=== PATIENT | female | born 1985 | race African-American/Black ===

== ENCOUNTER 2017-02-04 22:58 | Observation (INO) | payer BC ==
[~2017-02-04] VITALS: Ht 162.6 cm; Wt 97.5 kg
[2017-02-05] MEDS ORDERED: NALOXONE HCL 0.4 MG/ML 1ML VIAL IM PRN (00:15)
[2017-02-05] MEDS ORDERED: METHYLERGONOVINE MALEATE 0.2 MG/ML IM PRN (00:15)
[2017-02-05] MEDS ORDERED: TERBUTALINE SULFATE 1MG/ML VIAL SUBCUT ONE (00:30)
[2017-02-05] MEDS: BETAMETHASONE ACET/BETAMET 30 MG/5 ML VIAL IM SCH (01:40)
[2017-02-05] MEDS: LACTATED RINGERS 1,000 ML IV SCH ×5 (01:40→22:24)
[2017-02-05 02:11] LABS: CLARITY URINE CLEAR (CLEAR); COLOR URINE YELLOW (YELLOW); GLUCOSE URINE NEGATIVE (NEGATIVE); KETONES URINE TRACE (NEGATIVE); LEUKOCYTE ESTERASE URINE TRACE (NEGATIVE); NITRITE URINE NEGATIVE (NEGATIVE); OCCULT BLOOD URINE NEGATIVE (NEGATIVE); PH URINE 6.5 (4.5-8.0); PROTEIN URINE NEGATIVE (NEGATIVE); SPECIFIC GRAVITY URINE 1.016 (1.005-1.030); UROBILINOGEN URINE 0.2 E.U./dL (0.2-1.0)
[2017-02-05 02:14] LABS: BASOPHILS % 0.3 % (0.0-2.0); DIFFERENTIAL COMMENT 0; EOSINOPHILS % 1.2 % (0.0-5.0); HEMATOCRIT. 35.8 % (36.0-48.0); HEMOGLOBIN. 11.4 g/dL (12.0-16.0); MEAN CORPUSCULAR HEMOGLOBIN 25.2 pg (28.0-32.0); MEAN CORPUSCULAR HGB CONC 31.9 g/dL (31.0-37.0); MEAN CORPUSCULAR VOLUME 79.2 fL (81.0-99.0); MEAN PLATELET VOLUME 9.1 fl (7.4-10.4); MONOCYTES % 6.8 % (2.0-8.0); NEUTROPHILS % 67.7 % (40.0-76.0); PLATELET 247 x1000/uL (130-400); RED BLOOD CELL COUNT 4.52 mill/uL (4.2-5.4); RED CELL DISTRIBUTION WIDTH 15.1 % (11.6-14.6); WHITE BLOOD COUNT 14.4 x1000/uL (4.5-11.0)
[2017-02-05 02:49] LABS: *AMPHETAMINES SCREEN URINE NEGATIVE (NEGATIVE); *BARBITURATES SCREEN URINE NEGATIVE (NEGATIVE); *BENZODIAZEPINES SCREEN URINE NEGATIVE (NEGATIVE); *COCAINE SCREEN URINE NEGATIVE (NEGATIVE); CANNABINOID URINE SCREEN NEGATIVE (NEGATIVE); ECSTASY MDMA SCREEN URINE NEGATIVE (NEGATIVE); METHADONE URINE SCREEN NEGATIVE (NEGATIVE); OPIATES URINE SCREEN NEGATIVE (NEGATIVE); PHENCYCLIDINE URINE SCREEN NEGATIVE (NEGATIVE)
[2017-02-05] MEDS ORDERED: TERBUTALINE SULFATE 1MG/ML VIAL SUBCUT PRN (03:15)
[2017-02-05 04:03] LABS: MUCUS URINE 1+ /lpf (< = 2+); SQUAMOUS EPITHELIAL CELL URINE FEW /lpf (RARE/1+)
[2017-02-05 04:04] LABS: RBC URINE NONE SEEN /hpf (0-2)
[2017-02-05 04:05] LABS: BACTERIA URINE TRACE; WBC URINE 0-2 /hpf (0-2)
[2017-02-05 04:23] LABS: HEPATITIS B SURFACE ANTIGEN NEGATIVE; RUBELLA IGG 31.5 IU/mL (4.99-10)
[2017-02-05] MEDS ORDERED: PREN-55 PO (04:52)
[2017-02-05] MEDS ORDERED: LACTATED RINGERS 1,000 ML IV SCH (12:45)
[2017-02-06] MEDS: BETAMETHASONE ACET/BETAMET 30 MG/5 ML VIAL IM SCH (01:30)
== END 2017-02-06 13:30 | disposition home or self-care (01) ==
LOC: L&D 22:58
PROVIDERS: ADMIT Obstetrics & Gynecology Obstetrics; ATTEND Obstetrics & Gynecology Obstetrics
DX: O60.03 Preterm labor without delivery, third trimester (principal); Z3A.33 33 weeks gestation of pregnancy; O26.893 Other specified pregnancy related conditions, third trimester; R10.30 Lower abdominal pain, unspecified; M54.9 Dorsalgia, unspecified
CPT/HCPCS: 36415; 76805; 76815; 76817; 76818; 80305; 81001; 85025; 85610; 85730; 86592; 86703; 86762; 86850; 86900; 86901; 87340; 96360; 96361; 96372; G0378; J0702; J3105; J7120

== ENCOUNTER 2017-10-21 19:29 | Emergency (ER) | payer BC ==
[~2017-10-21] VITALS: Ht 162.6 cm; Wt 96.0 kg
[2017-10-22] VITALS: BP 147/82
== END 2017-10-22 00:44 | disposition home or self-care (01) ==
LOC: ER 21:15
DX: M79.601 Pain in right arm (principal)
CPT/HCPCS: 36415; 85379; 93971; 99285; Z7610

== ENCOUNTER 2018-10-23 16:47 | Inpatient (IN) | payer OTHER ==
[~2018-10-23] VITALS: Ht 162.6 cm; Wt 99.8 kg
[~2018-10-23 16:47] MED LIST: PNV1TABL50 MT
[2018-10-23] MEDS ORDERED: LACTATED RINGERS 1,000 ML IV SCH (21:51)
[2018-10-23] MEDS ORDERED: DEXT 5%/LR + PITOCIN 20UNITS/L 1,000 ML IV SCH (21:51)
[2018-10-23] MEDS ORDERED: NALOXONE HCL 0.4 MG/ML 1ML VIAL IM PRN (22:00)
[2018-10-23] MEDS ORDERED: METHYLERGONOVINE MALEATE 0.2 MG/ML IM PRN (22:00)
[2018-10-23 22:26] LABS: BASOPHILS % 0.2 % (0.0-2.0); EOSINOPHILS % 0.3 % (0.0-5.0); HEMATOCRIT. 39.1 % (36.0-48.0); HEMOGLOBIN. 12.5 g/dL (12.0-16.0); LYMPHOCYTES % 13.7 % (20.0-50.0); MEAN CORPUSCULAR HEMOGLOBIN 25.1 pg (28.0-32.0); MEAN CORPUSCULAR VOLUME 78.9 fL (81.0-99.0); MEAN PLATELET VOLUME 8.8 fl (7.4-10.4); MONOCYTES % 6.8 % (2.0-8.0); PLATELET 230 x1000/uL (130-400); RED BLOOD CELL COUNT 4.96 mill/uL (4.2-5.4); RED CELL DISTRIBUTION WIDTH 15.6 % (11.6-14.6)
[2018-10-23 22:33] LABS: PROTHROMBIN TIME 9.6 sec (9.1-11.1)
[2018-10-23] MEDS ORDERED: SUCCINYLCHOLINE CHLORIDE 200MG/10ML IV ONE (22:33)
[2018-10-23] MEDS ORDERED: FENTANYL CITRATE/PF 50MCG/ML 2ML VIAL ONE (22:33)
[2018-10-23] MEDS ORDERED: KETAMINE HCL 50 MG/ML 10ML ONE (22:36)
[2018-10-23] MEDS ORDERED: GLYCOPYRROLATE 0.2 MG/ML 2ML VIAL ONE (22:43)
[2018-10-23] MEDS ORDERED: SODIUM CHLORIDE 0.9% 10ML VIAL ONE (22:44)
[2018-10-23] MEDS ORDERED: PHENYLEPHRINE HCL 10 MG/ML 1ML (IV VIAL) IV ONE (22:45)
[2018-10-23] MEDS ORDERED: EPHEDRINE SULFATE 50MG/ML VIAL ONE (22:46)
[2018-10-23 23:04] LABS: HEPATITIS B SURFACE ANTIGEN NEGATIVE
[2018-10-23] MEDS ORDERED: BUPIVACAINE HCL/DEXTROSE/PF 0.75% 2ML AMP INJ ONE (23:29)
[2018-10-23] MEDS ORDERED: PROPOFOL 200MG/20ML VIAL IV ONE (23:50)
[2018-10-24] MEDS ORDERED: OXYTOCIN 10 UNITS/ML 1ML ONE (00:09)
[2018-10-24] MEDS ORDERED: ONDANSETRON HCL 4MG/2ML INJ IV PRN (01:00)
[2018-10-24] MEDS ORDERED: FENTANYL CITRATE/PF 50MCG/ML 2ML VIAL IV PRN (01:00)
[2018-10-24] MEDS ORDERED: NALOXONE HCL 0.4 MG/ML 1ML VIAL IV PRN (01:00)
[2018-10-24] MEDS ORDERED: DIPHENHYDRAMINE 50MG/ML VIAL IM PRN (01:00)
[2018-10-24] MEDS ORDERED: HYDROMORPHONE HCL/PF 2MG/ML CPJ IM PRN (01:00)
[2018-10-24] MEDS ORDERED: BUTORPHANOL TARTRATE 2 MG/ML VIAL ONE (01:06)
[2018-10-24] MEDS ORDERED: ACETAMINOPHEN 500MG TABLET PO PRN (01:15)
[2018-10-24] MEDS ORDERED: BUTORPHANOL TARTRATE 2 MG/ML VIAL IV NR (01:15)
[2018-10-24] MEDS ORDERED: OXYCODONE HCL/ACETAMINOPHEN 5/325MG TABLET PO PRN (01:15)
[2018-10-24 03:00] VITALS: BP 142/82
[2018-10-24 04:00] VITALS: BP 132/81
[2018-10-24] MEDS ORDERED: OXYTOCIN 20 UNITS in LACTATED RINGERS 1,000 ML IV SCH (04:00)
[2018-10-24] MEDS ORDERED: HYDROMORPHONE HCL/PF 2MG/ML CPJ IV PRN (04:00)
[2018-10-24 04:06] LABS: BASOPHILS % 0.5 % (0.0-2.0); EOSINOPHILS % 0.1 % (0.0-5.0); HEMATOCRIT. 39.5 % (36.0-48.0); HEMOGLOBIN. 12.7 g/dL (12.0-16.0); LYMPHOCYTES % 7.8 % (20.0-50.0); MEAN CORPUSCULAR HEMOGLOBIN 25.5 pg (28.0-32.0); MEAN PLATELET VOLUME 8.5 fl (7.4-10.4); MONOCYTES % 2.8 % (2.0-8.0); NEUTROPHILS % 88.8 % (40.0-76.0); PLATELET 207 x1000/uL (130-400); RED CELL DISTRIBUTION WIDTH 15.7 % (11.6-14.6)
[2018-10-24] MEDS: KETOROLAC 30MG/ML VIAL IV PRN ×4 (04:15→22:17)
[2018-10-24 08:00] VITALS: BP 119/71
[2018-10-24 16:00] VITALS: BP 113/70
[2018-10-24 20:00] VITALS: BP 117/77
[2018-10-25] VITALS: BP 99/63
[2018-10-25] MEDS: IBUPROFEN 800MG TABLET PO PRN ×3 (03:24→17:20)
[2018-10-25 08:00] VITALS: BP 103/66
[2018-10-25 12:20] VITALS: BP 105/70
[2018-10-25 16:00] VITALS: BP 121/81
[2018-10-25 19:45] VITALS: BP 121/73
[2018-10-26] VITALS: BP 128/71
[2018-10-26] MEDS: IBUPROFEN 800MG TABLET PO PRN ×2 (00:46→08:50)
[2018-10-26] MEDS: THEOPHYLLINE ANHYDROUS 80 MG/15 ML 120ML PO SCH ×2 (00:50→07:52)
[2018-10-26 04:00] VITALS: BP 104/56
[2018-10-26 08:30] VITALS: BP 118/74
== END 2018-10-26 14:45 | disposition home or self-care (01) | DRG 788 ==
LOC: OBSVTOIN 16:47 → L&D 16:47 → INTOOBSV 16:47 → 7EST PP/OB 10-24 03:59
PROVIDERS: ADMIT Obstetrics & Gynecology Obstetrics; ATTEND Obstetrics & Gynecology Obstetrics
PROC: 10D00Z1 Extraction of Products of Conception, Low, Open Approach (ICD-10-PCS; principal; 2018-10-24 00:40)
DX: O45.93 Premature separation of placenta, unspecified, third trimester (principal); O34.211 Maternal care for low transverse scar from previous cesarean delivery; O89.4 Spinal and epidural anesthesia-induced headache during the puerperium; Z3A.37 37 weeks gestation of pregnancy; Z37.0 Single live birth
CPT/HCPCS: 36415; 76815; 86592; 86703; 86762; 86850; 86900; 86920; 87340; 88307; 99281; A4216; J0330; J0595; J1170; J1885; J2370; J2590; J2704; J3010; J3490; J7120; A4315